=== PATIENT | female | born 1950 | race Asian ===

== ENCOUNTER 2019-03-16 09:07 | Emergency (ER) | payer MEDICARE, OTHER ==
[~2019-03-16] VITALS: Ht 154.9 cm; Wt 49.9 kg
[2019-03-16] MEDS ORDERED: MELOXICAM PO (09:21)
--- NOTE | 2019-03-16 09:54 | NUR ---
Patient discharged to home in stable conditon. Written and verbal after care instructions given. Patient verbalizes understanding of instructions.pt called son to come and pickers material handlers the pt.
--- NOTE | 2019-03-16 09:56 | NUR ---
pt son at bedside to take the pt home. pt walks in steady gait, no sign of distress.
== END 2019-03-16 09:58 | disposition home or self-care (01) ==
LOC: ER 09:07
DX: S20.212A Contusion of left front wall of thorax, initial encounter (principal); Z88.2 Allergy status to sulfonamides; Z79.899 Other long term (current) drug therapy; V43.52XA Car driver injured in collision with other type car in traffic accident, initial encounter; Y93.89 Activity, other specified; Y92.410 Unspecified street and highway as the place of occurrence of the external cause; Y99.8 Other external cause status
CPT/HCPCS: 71045; A4663